=== PATIENT | male | born 1995 | race African-American/Black ===

== ENCOUNTER 2018-08-23 11:00 | Emergency (ER) | payer MEDICAID ==
[~2018-08-23] VITALS: Ht 175.3 cm; Wt 63.5 kg
[2018-08-23 11:17] VITALS: BP 148/80
[2018-08-23] MEDS ORDERED: MAGNESIUM/ALUMINUM HYDROXIDE/SIMETHICONE 30ML UDC PO ONE (12:00)
== END 2018-08-23 18:38 | disposition home or self-care (01) ==
LOC: ER 11:00
DX: K21.9 Gastro-esophageal reflux disease without esophagitis (principal); J45.909 Unspecified asthma, uncomplicated
CPT/HCPCS: 93005; 99283